=== PATIENT | male | born 1950 | race Caucasian/White ===

== ENCOUNTER 2019-03-12 08:24 | Emergency (ER) | payer BC, OTHER ==
[~2019-03-12] VITALS: Ht 182.9 cm; Wt 90.3 kg
[2019-03-12] VITALS (11 sets, daily range): BP systolic 141–247; BP diastolic 83–202; PULSE 80–128; RESP 17–20; Ht 182.9 cm; Wt 90.3 kg
[2019-03-12] MEDS ORDERED: ASPIRIN 300 MG SUPP PR STA (08:29)
[2019-03-12] MEDS ORDERED: SOD CHLORIDE 0.9% 1,000 ML IV STA (08:29)
--- NOTE | 2019-03-12 08:44 | STROKE ---
Date/Time of Note Date/Time of Note DATE: 03/12/19 TIME: 10:43 Patient Information General Patient location: emergency Arrival Date Onset Date: Mar 12, 2019 Onset Time: 07:00 Onset Type sudden Age 68 Gender male Handedness: Right Weight Patient History Past Medical History Stroke, Hypertension Current Medications Anti-Coagulants: None Anti-Platelets: None Allergies: Coded Allergies: No Known Allergy (Unverified , 03/12/19) History & Physical Patient History Notes Pt Hx Reviewed History of Present Illness 68 y/o M LKW at 0700, at 0730 noted to have new aphasia, R weakness Review of Systems Constitutional: no symptoms reported EENTM: no symptoms reported Respiratory: no symptoms reported Cardiovascular: no symptoms reported Gastrointestinal: no symptoms reported Genitourinary: no symptoms reported Musculoskeletal: no symptoms reported Skin: no symptoms reported Psychiatric/Neurological: no symptoms reported All Other Systems: Reviewed and Negative NIH Stroke Scale NIH Stroke Scale Uwunx2Hm 4d LOC Questions: Yqyog4l LOC Commands: Xcqkw0x t Gaze: Ljcjb0k Rnkfx0n alsy: Uwqbu3x rm - Left: Kxeus3s ight: Oabme6l eft: Frife9o ight: Nwuck8e weak c/t L per nursing staff) Xknhg6Ws nt Torei6Gt to moderate loss Zymyf0Mx to moderate aphasia Avmkz6Sx Dysarthria: Hwght8a : Pcrxr7y Date/Time Recorded DATE: 03/12/19 TIME: 10:43 Submitted By Clarisa Jeffers t-PA Imaging Review Imaging Reviewed: Yes Date/Time Imaging Reviewed DATE: 03/12/19 TIME: 10:43 Imaging Findings no acute change; CTA shows critial short segment stenosis R ICA, ulcerative disease, ?ca2+ vs hyperdensity L M1 segment Inclusion/Exclusion Criteria No recent surgery, no recent bleeding. No anticoagulants. No history of ICH. BP 177/96. t-PA Administration Recommendation: Yes Weight 90.3 Recommedation submitted by Clarisa Jeffers Recommendations Impression [id number] Site: [address] Cerebral arteries Diagnosis 68 y/o M clinical history and examination most concerning for acute ischemic stroke, likely R hemispheric. Acute expressive greater than receptive aphasia and dysarthria, left greater than R sided numbness. NIHSS=3.Pt is a candidate for IV tPA . After extensive discussion of potential benefits and risks, pt requests treatment with IV tPA.BP 177/96. D/W Dr. Valdez who agrees with decision to treat. Recommend STAT consideration for vascular intervention given findings on CTA. Recommend Admission to NICU, follow post-TPA protocol. Close neuro and VS checks. IVFNSS. MRI brain. Keep SBP<180 and DBP<110. No antiplatelets or anticoagulants for 24 hours. Consider alternative etiologies of dysarthria including toxic/metabolic. Low suspicion of seizures, recommend seizure precautions and EEG if continued concerns. Local Neurology consult when available. Disposition 68 y/o M clinical history and examination most concerning for acute ischemic stroke, likely R hemispheric. Acute expressive greater than receptive aphasia and dysarthria, left greater than R sided numbness. NIHSS=3.Pt is a candidate for IV tPA . After extensive discussion of potential benefits and risks, pt requests treatment with IV tPA.BP 177/96. D/W Dr. Valdez who agrees with decision to treat. Recommend STAT consideration for vascular intervention given findings on CTA. Recommend Admission to NICU, follow post-TPA protocol. Close neuro and VS checks. IVFNSS. MRI brain. Keep SBP<180 and DBP<110. No antiplatelets or anticoagulants for 24 hours. Consider alternative etiologies of dysarthria including toxic/metabolic. Low suspicion of seizures, recommend seizure precautions and EEG if continued concerns. Local Neurology consult when available. Recommendation Recommend STAT consideration for vascular intervention given findings on CTA. Recommend Admission to NICU, follow post-TPA protocol. Close neuro and VS checks. IVFNSS. MRI brain. Keep SBP<180 and DBP<110. No antiplatelets or anticoagulants for 24 hours. Consider alternative etiologies of dysarthria including toxic/metabolic. Low suspicion of seizures, recommend seizure precautions and EEG if continued concerns. Local Neurology consult when available. Vwzdr9Gn Post t-PA Order Glkxo2p Document q15 min neuro checks recommendation: Refer to t-PA Order Sets [id number] Diagnostic Labs: Txfso7b Lipid Proile Hgb A1C CMP CBC w/Diff Coags Urinaysis Urine Drug Screen [id number] Diagnostic Workup: Fowqi3k Document q15 min vitals Document q15 min neuro checks Document q15 min bleeding checks Refer to t-PA Order Sets [id number] Therapy: Xjcdu7q Physical Therapy Speech Therapy Blncb9Qd Misc. Recommendations: Fmobg2n Bedside Swallow Evaluation Pnumatic Compression Devices Avoid Lee Catheter Stroke Education t-PA Administration Record t-PA Administration t-PA Administered Time: 9:07 PDT CLARISA JEFFERS MD Mar 12, 2019 08:44
[2019-03-12] MEDS ORDERED: SOD CHLORIDE 0.9% 100 ML ONE (08:45)
[2019-03-12] MEDS ORDERED: IODIXANOL LOCM 100 ML BTL ONE (08:45)
[2019-03-12] MEDS ORDERED: ALTEPLASE (tPA) 1 MG/ML BOLUS SYG IV* ONE ×2 (09:00→10:30)
[2019-03-12] MEDS ORDERED: SOD CHLORIDE 0.9% 50 ML IV ONE ×2 (09:00→10:30)
[2019-03-12] MEDS ORDERED: ENALAPRILAT 1.25 MG INJ IV ONE (09:00)
[2019-03-12] MEDS ORDERED: ALTEPLASE 100 MG INJ IV* ONE ×2 (09:00→10:30)
[2019-03-12] MEDS ORDERED: niCARdipine-NS 0.1MG/ML DRIP 200 ML IV STA (09:15)
--- NOTE | 2019-03-12 09:15 | ERD ---
ER Documentation Chief Complaint Chief Complaint HPI This is a 68-year-old man who is an employee at a [place] [facility] facility was w orking the overnight shift and was last seen normal at 7 AM this morning, about 30 minutes prior to arrival another staff member noticed he had difficulty speaking and expressing himself. He denied complaints of headache or blurry vision denied difficulty ambulating, no recent fevers or chills, no complaints of chest pain or shortness of breath. Patient's blood sugar was checked by EMS and was normal and he was transported here for possible stroke although patient did suffer a stroke about 6 years ago but had no residual deficits. ROS All systems reviewed and are negative except as per history of present illness. Medications Home Meds Unable to Obtain Active Prescriptions or Reported Meds Allergies Allergies: Coded Allergies: No Known Allergy (Unverified , 03/12/19) PMhx/Soc History of stroke, hypertension FmHx Family History: No diabetes Physical Exam Vitals Vital Signs Date Temp Pulse Resp B/P (MAP) Pulse Ox O2 O2 Flow FiO2 Time Delivery Rate 03/12/19 89 18 155/85 97 09:45 (108) 03/12/19 Nasal 2 09:34 Cannula 03/12/19 81 20 157/93 97 09:30 (114) 03/12/19 81 18 157/93 98 Nasal 2.0 09:30 (114) Cannula 03/12/19 92 18 168/85 98 09:15 (112) 03/12/19 92 18 168/85 98 Nasal 2.0 09:15 (112) Cannula 03/12/19 88 18 170/88 88 Room Air 09:07 (115) 03/12/19 94 18 177/96 93 Room Air 09:00 (123) 03/12/19 94 17 177/96 93 09:00 (123) 03/12/19 98.1 85 20 191/108 96 08:46 (135) Physical Exam GENERAL: Well-developed, well-nourished, well-hydrated, in no apparent distress, looks nontoxic in appearance, afebrile HEENT: Moist mucous membranes, pink conjunctiva, no cervical spine tenderness or step-off deformities, no goiter, no jaundice or icterus, extraocular movements intact without pain. 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 Normoactive bowel sounds SKIN: Warm and dry to touch, no abrasions, contusions, or hematomas, no lacerations, no ecchymosis, no target lesions, and without ulcers EXTREMITIES: No clubbing cyanosis or edema, calves are bilaterally symmetrical, no Homans sign, no popliteal cord sign. Distal pulses equal and bilateral PSYCH: Normal affect without agitation or irritability Result Diagram: 03/12/19 0859 03/12/19 0848 Results 24 hrs Laboratory Tests Test 03/12/19 08:47 03/12/19 08:48 03/12/19 08:59 Bedside Glucose 112 mg/dL Prothrombin Time 14.1 Sec Prothrombin Time Ratio 1.1 INR International Normalized Ratio 1.08 Activated Partial Thromboplast 27.7 Sec Time Sodium Level 140 mmol/L Potassium Level 4.1 mmol/L Chloride Level 108 mmol/L Carbon Dioxide Level 23 mmol/L Anion Gap 9 Blood Urea Nitrogen 19 mg/dl Creatinine 1.07 mg/dl Est Glomerular Filtrat Rate mL/min > 60 mL/min Glucose Level 123 mg/dl Calcium Level 9.2 mg/dl Total Bilirubin 1.2 mg/dl Direct Bilirubin 0.00 mg/dl Indirect Bilirubin 1.2 mg/dl Aspartate Amino Transf (AST/SGOT) 53 IU/L Alanine 77 IU/L Aminotransferase (ALT/SGPT) Alkaline Phosphatase 70 IU/L Creatine Kinase 122 IU/L Creatine Kinase Index 2.0 Creatinine Kinase MB (Mass) 2.44 ng/ml Troponin I < 0.012 ng/ml Total Protein 7.0 g/dl Albumin 4.2 g/dl Globulin 2.80 g/dl Albumin/Globulin Ratio 1.50 Triglycerides Level 137 mg/dl Cholesterol Level 205 mg/dl LDL Cholesterol, Calculated 115 mg/dl HDL Cholesterol 63 mg/dl Cholesterol/HDL Ratio 3.2 RATIO Ethyl Alcohol Level < 10.0 mg/dl White Blood Count 6.0 10^3/ul Red Blood Count 4.07 10^6/ul Hemoglobin 14.2 g/dl Hematocrit 40.9 % Mean Corpuscular Volume 100.5 fl Mean Corpuscular Hemoglobin 34.9 pg Mean Corpuscular 34.7 g/dl Hemoglobin Concent Red Cell Distribution Width 12.6 % Platelet Count 140 10^3/UL Mean Platelet Volume 9.9 fl Immature Granulocytes % 0.200 % Neutrophils % 71.8 % Lymphocytes % 20.0 % Monocytes % 7.0 % Eosinophils % 0.3 % Basophils % 0.7 % Nucleated Red Blood Cells % 0.0 /100WBC Immature Granulocytes # 0.010 10^3/ul Neutrophils # 4.3 10^3/ul Lymphocytes # 1.2 10^3/ul Monocytes # 0.4 10^3/ul Eosinophils # 0.0 10^3/ul Basophils # 0.0 10^3/ul Nucleated Red Blood Cells # 0.0 10^3/ul Current Medications Medications Dose Sig/Rosa Start Time Status Last (Trade) Ordered Route PRN Stop Time Admin Dose Reason Admin Sodium 1,000 ml @ Q1H STAT 03/12/19 DC Chloride 1,000 mls/hr IV 08:29 03/12/19 09:28 Aspirin 300 mg ONCE STAT 03/12/19 DC (Aspirin) ME 08:29 03/12/19 08:32 Alteplase, 68 mg BOLUS OVER 1 03/12/19 Cancel Recombinant MIN ONCE 09:00 03/12/19 (Activase) IV* 09:01 Alteplase, 60.8 mg ISCHEMIC 03/12/19 Cancel Recombinant STROKE ONCE 09:00 03/12/19 (Activase) IV* 09:01 Sodium 50 ml @ 0 FLUSH AFTER 03/12/19 DC Chloride mls/hr TPA ONCE IV 09:00 03/12/19 09:01 IV Flush 10 ml STK-MED 03/12/19 DC 03/12/19 (NS 10 ml) ONCE .ROUTE 08:45 03/12/19 08:50 08:46 Sodium 100 ml @ ud STK-MED 03/12/19 DC 03/12/19 Chloride ONCE .ROUTE 08:45 03/12/19 08:50 08:46 Iodixanol 100 ml STK-MED 03/12/19 DC 03/12/19 (Visipaque ONCE .ROUTE 08:45 03/12/19 08:51 Locm) 08:46 Enalaprilat 1.25 mg ONCE ONCE 03/12/19 DC 03/12/19 (Vasotec Iv) IV 09:00 03/12/19 08:58 09:01 Nicardipine 200 ml @ ONCE STAT 03/12/19 HCl 50 mls/hr IV 09:15 03/12/19 13:14 Alteplase, 8.1 mg BOLUS OVER 1 03/12/19 03/12/19 Recombinant MIN ONCE 10:30 03/12/19 09:07 (Activase) IV* 10:31 Alteplase, 73.1 mg ISCHEMIC 03/12/19 03/12/19 Recombinant STROKE ONCE 10:30 03/12/19 09:08 (Activase) IV* 10:31 Sodium 50 ml @ 0 FLUSH AFTER 03/12/19 03/12/19 Chloride mls/hr TPA ONCE IV 10:30 03/12/19 10:08 10:31 Procedures/MDM IV line was established 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 Patient was afebrile, blood sugar was normal. Code stroke was immediately called. EKG performed, read by me revealed normal sinus rhythm at 88 bpm, normal axis, narrow QRS complex, no concerning ST elevations or depressions noted CT scan of the brain was negative for acute bleed mass or shift. CTA of the brain and neck was performed,IMPRESSION: 1. No evidence for acute thrombus or hemodynamically significant stenoses with in the intracranial circulation. 2. Critical stenosis short segment greater than 90% in the right internal carotid artery origin with 50% moderate stenosis over 1.7 cm of the proximal right internal carotid artery. Associated 3 mm ulcerative crater and ulceration is noted in the posterior proximal right internal carotid artery origin. 3. 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 Telemetry neurologist saw and evaluated the patient at the bedside and also recommended TPA intervention after obtaining verbal consent with the patient. Patient's blood pressure was mildly elevated due to needlestick from recent blood draw so I administered enalapril 1.25 mg IV x1 TPA was administered. Critical Care: Time: 48 minutes, this was time separate from other billable procedures. Treatments/Evaluations: Close monitoring and treatment of unstable vital signs, cardiorespiratory, and neurologic status, while maintaining tight balance of fluid, respiratory, and cardiac interventions. We arranged transfer for higher level of care to [facility] for possible endovascular clot retrieval therapy if indicated. CBC was normal, lecture lites normal, liver function test normal, troponin negative, ethanol level negative, coagulation profile normal Patient's neurologic symptoms include mild aphasia and it is stable at this time, patient's initial hypertension has improved and he is set up for transfer to [facility]. Departure Diagnosis: Primary Impression: Aphasia Additional Impressions: Acute ischemic stroke Hypertensive emergency Condition: Serious CHRIS PACHECO MD Mar 12, 2019 09:15
== END 2019-03-12 11:05 | disposition short-term general hospital (02) ==
LOC: E/R 08:24
DX: I63.9 Cerebral infarction, unspecified (principal); I16.1 Hypertensive emergency; R47.01 Aphasia
CPT/HCPCS: 36415; 37195; 70450; 70496; 70498; 71045; 80053; 80061; 80307; 82550; 82553; 82962; 83036; 84484; 85025; 85610; 85730; 86850; 86900; 86901; 93005; 96374; 96375; 99285; J2997; J7030; Q9967